=== PATIENT | male | born 1975 ===

== ENCOUNTER 2017-12-24 17:24 | Emergency (ER) | payer SELFPAY ==
[2017-12-24] MEDS ORDERED: Amoxicillin-Clav 875-125 mg Tab PO STA (17:47)
[2017-12-24] MEDS ORDERED: Tetanus/Diphtheria Toxoids 0.5 ml Syringe IM ONE ×2 (17:47→17:56)
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
[2017-12-24] MEDS ORDERED: Bacitracin 500 Units/gm Oint Foilpak UD TOP ONE (17:52)
[2017-12-24] MEDS ORDERED: Amoxicillin-Clav 875-125 mg Tab PO ONE (17:55)
[2017-12-24] MEDS ORDERED: Bacitracin 500 Units/gm Oint Foilpak UD ONE (18:03)
[2017-12-24 18:48] VITALS: BP 148/99; PULSE 67; RESP 18; TEMP 98.9
[2017-12-24 18:56] VITALS: O2SAT 98
== END 2017-12-24 18:15 | disposition home or self-care (01) ==
LOC: C.ER 17:24 → EDBD 17:24 → C.ER 18:15
DX: S81.801A Unspecified open wound, right lower leg, initial encounter (principal); Y04.1XXA Assault by human bite, initial encounter; Z23 Encounter for immunization